=== PATIENT | female | born 1945 | race Caucasian/White ===

== ENCOUNTER 2020-02-03 14:37 | Emergency (ER) | payer MEDICARE, SELFPAY ==
[2020-02-03 14:48] VITALS: BP 159/92; PULSE 73; RESP 18; TEMP 36.9; O2SAT 99
--- NOTE | 2020-02-03 14:48 | ED.WOUNDLAC ---
HPI - Wound/Laceration General Chief Complaint: Wound/Laceration Stated Complaint: Laceration Time Seen by Provider: 02/03/20 14:48 Source: patient and RN notes reviewed Mode of arrival: ambulatory Limitations: no limitations History of Present Illness HPI narrative: 74 year old female who presents to [facility] with complaints of skin tear to her left anterior forearm which occurred last night. Patient states that she hit her arm on the door frame and caused skin tear to anterior left forearm which measures 3cmX 2.5cm with some of tissue pulled back and folded underneath each other. Patient states minimal discomfort to area with palpation has applied Telfa and tape to cover wound. Patient states that it has been over 10 years since she had tetanus. Onset (ago): day(s) (1) Extremity Location: Left: forearm (anterior) Place: home Patient tetanus UTD: No Context: accidental Treatments prior to arrival: bandage Related Data Home Medications Medication Instructions Recorded Confirmed losartan 02/03/20 simvastatin 20 mg PO DAILY 02/03/20 02/03/20 Allergies Allergy/AdvReac Type Severity Reaction Status Date / Time No Known Allergies Allergy Unknown Unverified 02/03/20 14:56 Review of Systems Review of Systems: Narrative: CONSTITUTIONAL: Denies fever, chills, or sweats. EYES: Denies visual changes, redness, or discharge. ENT: Denies rhinorrhea, congestion, sore throat, or otalgia. CARDIOVASCULAR: Denies chest pain, palpitations, or edema. RESPIRATORY: Denies cough or dyspnea. GASTROINTESTINAL: Denies abdominal pain, nausea, vomiting, or diarrhea. GENITOURINARY: Denies dysuria or hematuria. SKIN: Denies rash or itching.skin tear to anterior left forearm with small amount of bleeding noted.skin tear tissue bruised. MUSCULOSKELETAL: Denies back pain, joint pain, or myalgia. NEUROLOGIC: Denies headache, numbness, or weakness. PSYCHIATRIC: Denies anxiety or depression. All systems reviewed & are unremarkable except as noted in HPI and below PMFSH Past Medical History Medical History (Updated 02/03/20 @ 15:39 by Uzma Abarca NP) Acute asthmatic bronchitis Breast cancer Cataract (lens) fragments in eye following cataract surgery, bilateral Detached retina, left Diverticulitis Hyperlipidemia Hypertension Pneumonia Surgical History Surgical History (Updated 02/03/20 @ 14:54 by Uzma Abarca NP) History of lumpectomy of left breast History of tubal ligation Family History Family History (Updated 02/03/20 @ 15:40 by Uzma Abarca NP) Mother Breast cancer Father Acute myocardial infarction Social History Social History (Updated 02/03/20 @ 14:55 by Uzma Abarca NP) Smoking status: Never smoker Alcohol intake: current Living arrangements: with family Gender identity (if verbalized by the patient): Female Comments At time of signature, agree with nursing past medical, surgical, social and family history. There is no relevant family history pertinent to the presenting complaint Exam Narrative: Exam Narrative: GENERAL: Well-appearing, well-nourished, and in no acute distress. HEAD: Normocephalic, atraumatic. EYES: PERRLA and EOMI. ENT: Nares clear, no rhinorrhea or epistaxis. Mucous membranes moist. NECK: Supple.no lymphadenopathy CHEST: Clear to auscultation. No respiratory distress.SAO2 99% on room air HEART: Regular rate and rhythm. No murmur heard. Normal peripheral pulses. ABDOMEN: Soft, nontender, nondistended, normal active bowel sounds. EXTREMITIES: Normal range of motion. No edema. SKIN: Warm, dry, no rash.3cmX2.5cm skin tear to left anterior forearm with tissue pulled back upon self, small amount of bleeding noted. NEURO: No focal deficits. Alert and oriented x3. Course Vital Signs Vital signs: Vital Signs Temperature 36.9 C 02/03/20 14:48 Pulse Rate 73 02/03/20 14:48 Respiratory Rate 18 02/03/20 14:48 Blood Pressure 159/92 H 02/03/20 14:48 Pulse Ox
[2020-02-03] MEDS: TETANUS,DIPHTHERIA,AC PERTUSSIS ADULT (0.5 ML) BOOSTRIX IM (15:19)
== END 2020-02-03 15:40 | disposition home or self-care (01) ==
PROVIDERS: Emergency Provider Registered Nurse; PCP Family Medicine
DX: S51.812A Laceration without foreign body of left forearm, initial encounter (principal); W22.09XA Striking against other stationary object, initial encounter; Z23 Encounter for immunization; E78.5 Hyperlipidemia, unspecified; I10 Essential (primary) hypertension; Z85.3 Personal history of malignant neoplasm of breast
CPT/HCPCS: 90471; 90715; 99212; G0463

== ENCOUNTER → 2020-07-18 11:53 | Outpatient (CLI) | payer MEDICARE, SELFPAY ==
--- NOTE | ~2020-07-18 | MM_ITS ---
EXAMINATION: MM screening [facility] BI w bambi HISTORY: Screening TECHNIQUE: Craniocaudal and mediolateral oblique 3-D tomosynthesis images were obtained and synthetic 2-D images were generated. CAD analysis was submitted and interpreted. COMPARISON: Comparison to multiple prior studies sequentially, with oldest reviewed study dated 02/09. BREAST PARENCHYMAL COMPOSITION: There are scattered areas of fibroglandular density. FINDINGS: There is no evidence of suspicious mass, calcification, or architectural distortion to sugg est malignancy in either breast. There has been no suspicious interval change. IMPRESSION: 1. No mammographic evidence of malignancy. 2. Recommend routine screening mammography in one year. BI-RADS Category 2: Benign finding(s). Reviewed, dictated and finalized at location A. ING MOLDER
== END ==
PROVIDERS: Visit Provider Obstetrics & Gynecology
DX: Z12.31 Encounter for screening mammogram for malignant neoplasm of breast (principal)
CPT/HCPCS: 77063; 77067

== ENCOUNTER 2021-02-05 12:28 | Emergency (ER) | payer MEDICARE, SELFPAY ==
[2021-02-05 12:36] VITALS: BP 124/60; PULSE 50; RESP 18; TEMP 36.7; O2SAT 100
--- NOTE | 2021-02-05 13:28 | ED.WOUNDLAC ---
HPI - Wound/Laceration General Chief Complaint: Wound/Laceration Stated Complaint: Wound on payne Time Seen by Provider: 02/05/21 13:21 Source: patient and RN notes reviewed Mode of arrival: ambulatory Limitations: no limitations History of Present Illness HPI narrative: Patient presents today complaining of an infected laceration to her right lower leg. 2 weeks ago, she struck her leg on a 2 x 4 piece of wood, causing a flap skin tear. She cleaned with alcohol and had been applying Neosporin and Vaseline. She noticed that it had been healing and wanted to come in for evaluation. Related Data Home Medications Medication Instructions Recorded Confirmed mometasone-formoterol HFA 100 2 puff INHALATION Q12H 06/02/20 02/05/21 mcg-5 mcg/actuation aerosol inhaler Allergies Allergy/AdvReac Type Severity Reaction Status Date / Time No Known Allergies Allergy Unknown Verified 02/05/21 12:39 Review of Systems Review of Systems: CONSTITUTIONAL: Denies body aches, fever, chills, or sweats. EYES: Denies visual changes, redness, or discharge. ENT: Denies rhinorrhea, congestion, sore throat, or otalgia. CARDIOVASCULAR: Denies chest pain, palpitations, or edema. RESPIRATORY: Denies cough or dyspnea. GASTROINTESTINAL: Denies abdominal pain, nausea, vomiting, or diarrhea. GENITOURINARY: Denies dysuria or hematuria. SKIN: + Infected wound to right lower leg MUSCULOSKELETAL: Denies back pain, joint pain, or myalgia. NEUROLOGIC: Denies headache, numbness, tingling, or weakness. PSYCH: Denies depression or anxiety. [facility] Past Medical History Medical History Acute asthmatic bronchitis Breast cancer Cataract (lens) fragments in eye following cataract surgery, bilateral Detached retina, left Diverticulitis Hyperlipidemia Hypertension Pneumonia Surgical History Surgical History History of lumpectomy of left breast History of tubal ligation Family History Family History Mother Breast cancer Father Acute myocardial infarction Social History Social History Smoking status: Never smoker Alcohol intake: current Drinks per week: 5 Gender identity (if verbalized by the patient): Female Comments At time of signature, I have reviewed and agree with nursing past medical, surgical, social and family history unless otherwise noted. Please see nursing chart for further information. There is no relevant family history pertinent to the presenting complaint Exam Narrative: GENERAL: Well-appearing, well-nourished, and in no acute distress. HEAD: Normocephalic, atraumatic. EYES: EOMI. No redness or drainage. Conjunctivae normal. ENT: Mucous membranes pink and moist. NECK: Normal AROM. CHEST: No respiratory distress. EXTREMITIES: Normal range of motion. No edema. SKIN: Warm, dry, no rash. Capillary refill normal. Normal skin turgor. 6 x 3.5 cm area of erythema to the right lower leg anteriorly. 3 x 1 cm flap laceration to the center. There is honey crusting coming from a partially scabbed laceration. Mildly tender to palpation. No active drainage NEURO: No focal deficits. Alert and oriented x3. Gait steady. PSYCH: Normal affect. No signs of depression or anxiety. Course Vital Signs Vital signs: Vital Signs Temperature 98.1 F 02/05/21 12:36 Pulse Rate 50 L 02/05/21 12:36 Respiratory Rate 18 02/05/21 12:36 Blood Pressure 124/60 02/05/21 12:36 Pulse Oximetry 100 02/05/21 12:36 Temperature 98.1 F 02/05/21 12:36 Pulse Rate 50 L 02/05/21 12:36 Respiratory Rate 18 02/05/21 12:36 Blood Pressure 124/60 02/05/21 12:36 Pulse Oximetry 100 02/05/21 12:36 Reviewed. Pt has been instructed to follow up with her PCP regarding her elevated blood pressu
== END 2021-02-05 13:36 | disposition home or self-care (01) ==
PROVIDERS: Emergency Provider Nurse Practitioner; PCP Internal Medicine
DX: S81.811A Laceration without foreign body, right lower leg, initial encounter (principal); L08.9 Local infection of the skin and subcutaneous tissue, unspecified; E78.5 Hyperlipidemia, unspecified; I10 Essential (primary) hypertension; W22.8XXA Striking against or struck by other objects, initial encounter
CPT/HCPCS: 99213; G0463

== ENCOUNTER 2021-05-25 13:12 | Emergency (ER) | payer MEDICARE, SELFPAY ==
--- NOTE | ~2021-05-25 | CT_ITS ---
EXAMINATION: CT facial & cervical spine wo DATE: 05/25/2021 13:50 INDICATION: Head injury. Facial swelling. TECHNIQUE: Computed tomography (CT) of the maxillofacial region and cervical spine was performed with out intravenous contrast. Automated exposure control and iterative reconstruction technique were empl oyed. The dose-length product was 193.41 mGy-cm. COMPARISON: None FINDINGS: MAXILLOFACIAL CT: There is left frontal scalp soft tissue swelling and left periorbital swelling. There are likely mcmillan ges of ocular lens replacement surgeries. There is mild mucosal thickening in the paranasal sinuses. There is rightward deviation of the nasal septum. No fracture. The mastoid air cells are normal. CERVICAL SPINE CT: There is scarring at the lung apices. There is 9 degrees levocurvature of cervical spine. There is 2 mm anterolisthesis of C3 on C4 and 2 mm retrolisthesis of C5 on C6. Vertebral body heights are normal . There is severely decreased disc height from C4-C5 through C6-C7. The following disc levels are spe cifically discussed: C2-C3: There is no uncovertebral joint osteoarthritis. There is severe right facet joint osteoarthrit is. There is ankylosis of left facet joint with moderate hypertrophy. There is mild left neural thuy inal stenosis. There is no central canal stenosis. C3-C4: There is mild bilateral uncovertebral joint osteoarthritis. There is severe bilateral facet lyn int osteoarthritis. There is mild bilateral neural foraminal stenosis. There is no central canal sten osis. C4-C5: There is severe bilateral uncovertebral joint osteoarthritis. There is severe bilateral facet joint osteoarthritis. There is mild bilateral neural foraminal stenosis. There is mild central canal stenosis. C5-C6: There is severe bilateral uncovertebral joint osteoarthritis. There is moderate bilateral face t joint osteoarthritis. There is moderate right and mild left neural foraminal stenosis. There is mil d central canal stenosis. C6-C7: There is severe bilateral uncovertebral joint osteoarthritis. There is severe right and mild l eft facet joint osteoarthritis. There is moderate right and mild left neural foraminal stenosis. Ther e is mild central canal stenosis. C7-T1: There is no uncovertebral joint osteoarthritis. There is severe bilateral facet joint osteoart hritis. There is moderate right and mild left neural foraminal stenosis. There is no central canal st enosis. IMPRESSION: 1. No fracture. 2. Severe cervical spondylosis. Reviewed, dictated and finalized at location A. DRATOR TENDER
--- NOTE | ~2021-05-25 | CT_ITS ---
EXAMINATION: CT brain wo con DATE: 05/25/2021 13:50 INDICATION: Facial swelling TECHNIQUE: Computed tomography (CT) of the head was performed without intravenous contrast. The mA wa s adjusted according to patient size. Iterative reconstruction technique was employed. Exam dose: 60 5.33 mGy-cm total exam DLP. COMPARISON: None FINDINGS: There is prominent soft tissue swelling in the region of the nasion and particularly in the left periorbital and extracranial frontal areas. No intracranial coup or contrecoup injury is eviden t. No skull fracture is detected. No orbital abnormality is noted. The globes appear intact. No intracranial mass lesion or hemorrhage or cerebrovascular accident is detected. No midline shift o r mass effect effect. Bilateral carotid siphon internal carotid artery calcifications are noted. There is nonspecific dimin ished attenuation cerebral white matter, likely due to chronic small vessel ischemic changes. There are central and cortical cerebral volume loss and cerebellar volume loss. No subdural or epidural hematoma is detected. There is a small degenerative cyst or polyp in the upper posteromedial left maxillary sinus. The incl uded paranasal sinuses and mastoid air cells are otherwise normally developed and aerated. IMPRESSION: Prominent soft tissue swelling over the extracranial left frontal area and nasion; no un derlying skull fracture or acute intracranial abnormality Reviewed, dictated and finalized at Location A. Reviewed, dictated and finalized at location A. ERCIAL COUNSEL IMPRESSION: Prominent soft tissue swelling over the extracranial left frontal area and nasion; no underlying skull fracture or acute intracranial abnormality
[2021-05-25 13:20] VITALS: BP 161/83; O2SAT 100
[2021-05-25 13:27] VITALS: BP 163/118; PULSE 102; RESP 18; TEMP 37.2; O2SAT 100
[2021-05-25 13:30] VITALS: BP 163/118; PULSE 81; RESP 18; O2SAT 100
--- NOTE | 2021-05-25 13:39 | ED.FALL ---
HPI - Fall General Chief Complaint: Fall Stated Complaint: Fall, Head injury Time Seen by Provider: 05/25/21 13:28 Source: patient and RN notes reviewed Mode of arrival: ambulatory Limitations: no limitations History of Present Illness HPI Narrative: This is a 75 year old female who presents for evaluation of a head injury. She was carrying a box and she tripped on a rug. She fell forward, and she hit her left fore head on ground. She denies LOC, nausea, vomiting or dizziness. 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 She denies taking any blood thinners. She denies neck pain, arm pain, hip pain, numbness or tingling. She denies blurred vision. Related Data Home Medications Medication Instructions Recorded Confirmed mometasone-formoterol HFA 100 2 puff INHALATION Q12H 06/02/20 02/05/21 mcg-5 mcg/actuation aerosol inhaler Allergies Allergy/AdvReac Type Severity Reaction Status Date / Time No Known Allergies Allergy Unknown Verified 02/05/21 12:39 Review of Systems Review of Systems: All systems reviewed & are unremarkable except as noted in HPI and below PMFSH Past Medical History Medical History Acute asthmatic bronchitis Breast cancer Cataract (lens) fragments in eye following cataract surgery, bilateral Detached retina, left Diverticulitis Hyperlipidemia Hypertension Pneumonia Surgical History Surgical History History of lumpectomy of left breast History of tubal ligation Family History Family History Mother Breast cancer Father Acute myocardial infarction Social History Social History Smoking status: Never smoker Alcohol intake: current Drinks per week: 5 Gender identity (if verbalized by the patient): Female Exam Const: General: no acute distress and alert Orientation/consciousness: patient oriented x3 HENMT: Head: normocephalic, hematoma (fore forehead hematura, left periorbital ecchymosis) and other Ears: hearing grossly normal bilaterally, external ears normal and TM's normal bilaterally Face and sinus: sinuses nontender Mouth: Yes Normal oral and palatal mucosa present, Yes lip normal, Yes oropharynx normal and Yes moist mucous membranes Throat: posterior oropharynx normal, tonsils normal and uvula midline Eyes: Pupils: Equal, round and reactive pupils present EOM: EOMs intact bilaterally Neck: Neck: normal visual inspection Chest: Chest palpation & inspection: normal inspection of the chest Resp: Effort & Inspection: normal respiratory effort and no retractions Auscultation: clear to auscultation bilaterally Cardio: Rate: regular rate Rhythm: regular rhythm Heart sounds: no murmurs GI: GI Palp: Yes Soft to palpation, No Tenderness to palpation present (GI) and No Guarding due to palpation present (GI) Auscultation: normal bowel sounds Neuro: General: patient oriented x3, moves all extremities and CN's II-XI intact bilaterally Extrem: Other: abrasion to left knee but no swelling or deformity Psych: Mental Status: mental status grossly normal Affect: normal affect Course Reevaluation(s) Reevaluation #1: Patient has no complaints. I reviewed CT with patient and family. She was given discharge instructions and plan. Date: 05/25/21 Time: 15:10 Vital Signs Vital signs: Vital Signs Blood Pressure 161/83 H 05/25/21 13:20 Pulse Oximetry 100 05/25/21 13:20 Temperature 99 F 05/25/21 13:27 Pulse Rate 72 05/25/21 15:20 Respiratory Rate 18 05/25/21 15:20 Blood Pressure 165/98 H 05/25/21 15:20 Pulse Oximetry 100 05/25/21 15:20 MDM - Fall Imaging Data Radiologist's impression: ITS Impressions Head CT 05/25/21 13:50 IMPRESSION: Prominent soft tissue swelling over the extr
[2021-05-25 15:20] VITALS: BP 165/98; PULSE 72; RESP 18; O2SAT 100
== END 2021-05-25 15:21 | disposition home or self-care (01) ==
PROVIDERS: Emergency Provider General Practice; PCP Internal Medicine
DX: S00.83XA Contusion of other part of head, initial encounter (principal); S80.212A Abrasion, left knee, initial encounter; J45.909 Unspecified asthma, uncomplicated; E78.5 Hyperlipidemia, unspecified; I10 Essential (primary) hypertension; H33.22 Serous retinal detachment, left eye; Z85.3 Personal history of malignant neoplasm of breast; Z87.01 Personal history of pneumonia (recurrent); Z98.42 Cataract extraction status, left eye; Z98.41 Cataract extraction status, right eye; M47.812 Spondylosis without myelopathy or radiculopathy, cervical region; W18.09XA Striking against other object with subsequent fall, initial encounter
CPT/HCPCS: 70450; 70486; 72125; 99284

== ENCOUNTER → 2021-09-05 09:27 | Outpatient (CLI) | payer MEDICARE, SELFPAY ==
--- NOTE | ~2021-09-05 | XR_ITS ---
EXAMINATION: HAND-ASHLY ARTHRITIS 3+VIEWS DATE: 09/05/2021 09:49 INDICATION: Unspecified osteoarthritis with diffuse tenderness and swelling at the bilateral hands. TECHNIQUE: Posteroanterior, lateral, and oblique views of the left and of the right hands as well as a ballcatchers view of both hands were obtained. COMPARISON: None. FINDINGS: Diffuse osteopenia. Bone alignment is normal. No fracture. Likely symmetric pattern of polyarticular osteoarthritis characterized by mild nonuniform joint space narrowing and/or small marginal osteophyt es. There is of moderate severity at the right second-fourth and left third metacarpophalangeal joint s and right third distal interphalangeal joint. Mild osteoarthritis at the majority the remaining phill nts at the bilateral hands and wrists. Chondrocalcinosis at the bilateral wrist joints from early elodia ng the triangular fibrocartilage complex. There are few scattered degenerative subchondral cysts with thin sclerotic margins. There is soft tissue swelling and primarily the left second and right second and third digits and at the right fifth proximal interphalangeal joint. IMPRESSION: 1. Relatively symmetric mild to moderate polyarticular osteoarthritis at the bilateral hands and wris ts. Chondrocalcinosis at the wrist joints as well as the predominant subcutaneous space narrowing at the metacarpophalangeal joints can be seen in the setting of calcium pyrophosphate deposition (CPPD) disease. Reviewed, dictated and finalized at location A. IMPRESSION: 1. Relatively symmetric mild to moderate polyarticular osteoarthritis at the bi lateral hands and wrists. Chondrocalcinosis at the wrist joints as well as the predominant subcutaneous space narrowing at the metacarpophalangeal joints can be seen in the setting of calcium pyrophosphate deposition (CPPD) disease.
== END ==
PROVIDERS: PCP Internal Medicine; Visit Provider Internal Medicine
DX: M19.042 Primary osteoarthritis, left hand (principal); M19.041 Primary osteoarthritis, right hand; M19.032 Primary osteoarthritis, left wrist; M19.031 Primary osteoarthritis, right wrist; M11.232 Other chondrocalcinosis, left wrist; M11.231 Other chondrocalcinosis, right wrist
CPT/HCPCS: 73130

== ENCOUNTER → 2021-10-06 10:19 | Outpatient (CLI) | payer MEDICARE, SELFPAY ==
--- NOTE | ~2021-10-06 | MM_ITS ---
EXAMINATION: MM screening [facility] BI w bambi HISTORY: Screening mammogram, history of left breast cancer TECHNIQUE: Craniocaudal and mediolateral oblique 3-D tomosynthesis images were obtained and synthetic 2-D images were generated. CAD analysis was submitted and interpreted. COMPARISON: 07/18/2020, 05/21/2019, 04/22/2018 BREAST PARENCHYMAL COMPOSITION: There are scattered areas of fibroglandular density. FINDINGS: There are stable lumpectomy changes in the left breast. There is no suspicious mass, calcif ication, or architectural distortion to suggest malignancy in either breast. There has been no suspic ious interval change. IMPRESSION: 1. No mammographic evidence of malignancy. 2. Recommend routine screening mammography in one year. BI-RADS Category 2: Benign finding(s). Reviewed, dictated and finalized at location A.
--- NOTE | ~2021-10-06 | DEXA_ITS ---
Bone Density Report Name: GUMARO CRUZ Age: 76 Sex: Female Ethnicity: White Date of : 1945 Indication: postmenopausal; screening for osteoporosis; height loss; prior fracture; asthma or emphysema; Referring Provider: CASSIE BLACKWELL Study: Bone densitometry was performed. Exam Date: October 06, 2021 Accession number: [id number] Bone Density: Region BMD T-score Z-score Classification AP Spine (L3, L4) 0.819 -2.6 0.1 Osteoporosis Femoral Neck (Left) 0.574 -2.5 -0.3 Osteoporosis Total Hip (Left) 0.743 -1.6 0.3 Osteopenia Femoral Neck (Right) 0.544 -2.7 -0.6 Osteoporosis Total Hip (Right) 0.704 -1.9 0.0 Osteopenia Total Hip Mean 0.724 -1.8 0.2 Osteopenia World Health Organization criteria for BMD impression classify patients as: Normal (T-score at or above -1.0), Osteopenia (T-score between -1.0 and -2.5), or Osteoporosis (T-score at or below -2.5). 10-year Fracture Risk: FRAX not reported because: Some T-score for Spine Total or Hip Total or Femoral Neck at or below -2.5 Clinical Information Provided by Patient: Has had a low trauma fracture Has used the following medications: Calcium, MULT VIT Has the following medical conditions: Asthma or Emphysema, BREAST CA Patient maximum height was 60 Menopause Age: 41 No regular weight bearing exercise Onset of menses at age 14 Number of children 2 Impression: The patient has established osteoporosis, based on the Right Femoral Neck T-score and the existence of a prior fracture. The patient has risk factors, including: previous fracture. Discussion: HIGH RISK OF FRACTURE. BONE DENSITY IS UNDESIRABLY LOW AT ONE OR MORE SKELETAL SITES, CONSISTENT WITH POSTMENOPAUSAL OSTEOPOROSIS. This patient's lowest T-score, in a patient who has previously fractured, meets the World Health Organization's (WHO) criteria for severe osteoporosis. In untreated patients, the risk of osteoporotic fracture increases approximately two-fold for each 1.0 SD decrease in T-score. Low bone density is not the only risk factor for fracture; also consider factors such as patient's age, frailty or poor health, risk of falling, risk of injury, previous osteoporotic fracture, family history of osteoporosis, cigarette smoking, low body weight, etc. Not everyone with low bone mineral density has osteoporosis; osteomalacia and other metabolic bone disorders should also be considered. Patients who have osteoporosis should be evaluated for specific diseases and conditions (secondary causes) that may cause or contribute to bone loss. The [place] [employer]ocrinologists (AACE) and National Osteoporosis Foundation (NOF) recommend pharmacologic intervention for all postmenopausal women whose T-score is in this range. The patient should follow a healthful lifestyle (good nutrition with adequate
== END ==
PROVIDERS: PCP Internal Medicine; Visit Provider Internal Medicine
DX: Z12.31 Encounter for screening mammogram for malignant neoplasm of breast (principal); Z78.0 Asymptomatic menopausal state; M85.89 Other specified disorders of bone density and structure, multiple sites; M81.0 Age-related osteoporosis without current pathological fracture
CPT/HCPCS: 77063; 77067; 77080

== ENCOUNTER 2021-10-09 18:00 | Emergency (ER) | payer MEDICARE, SELFPAY ==
--- NOTE | ~2021-10-09 | CT_ITS ---
EXAMINATION: CT brain wo con DATE: 10/09/2021 18:49 INDICATION: fall, head injury . TECHNIQUE: Computed tomography (CT) of the head was performed without intravenous contrast. The mA wa s adjusted according to patient size. Iterative reconstruction technique was employed. The dose-lengt h product was 605.33 mGy-cm. COMPARISON: 05/25/2021. FINDINGS: No acute intracranial hemorrhage or extra-axial fluid collection. No hydrocephalus, mass, or herniation. No acute ischemic infarct. Unremarkable dural venous sinus attenuation. No acute osseous abnormality. Small retention cyst/polyp in the left medullary sinus. Minimal mucosal thickening in the inferior ri ght maxillary sinus and the middle ethmoid air cells, otherwise the aerated spaces are clear. Mild atrophy and chronic white matter change. Atherosclerotic intracranial calcifications. IMPRESSION: No acute intracranial process. Reviewed, dictated and finalized at location K.
--- NOTE | ~2021-10-09 | XR_ITS ---
EXAM: XR wrist LT min 3V DATE: 10/09/2021 18:30 HISTORY: fall, pain . COMPARISON: None available. FINDINGS: Decreased mineralization. No fracture or dislocation. No lytic or blastic lesion. Mild sca ttered degenerative change. No erosion or periosteal change. Soft tissues within normal limits. IMPRESSION: No acute osseous finding in the left wrist. Reviewed, dictated and finalized at location K.
[2021-10-09 18:02] VITALS: BP 177/110; PULSE 73; RESP 16; TEMP 36.6; O2SAT 100
--- NOTE | 2021-10-09 18:22 | ED.FALL ---
HPI - Fall General Chief Complaint: Fall Stated Complaint: fall Time Seen by Provider: 10/09/21 18:12 History of Present Illness HPI Narrative: Patient is a 76-year-old female here for evaluation of left wrist pain after a fall today. Patient states she was taking the garbage cans out this morning, not wearing her glasses, and she tripped over an object on the road, landing and falling on her left side. She did hit the left side of her head, and also caught herself on her left wrist. She was able to walk after the incident and did not believe that she lost consciousness. Currently complaining of left wrist tightness . Patient presents with her daughter and , who also expressed concern over intermittent memory issues since the incident. They state that patient appears more confused than usual. Patient denies any headaches, visual changes, nausea, vomiting, blood thinner use. She took a Tylenol prior to arrival which alleviated all of her pain. Up to date on tetanus as of 2019. Related Data Home Medications Medication Instructions Recorded Confirmed mometasone-formoterol HFA 100 2 puff INHALATION Q12H 06/02/20 09/05/21 mcg-5 mcg/actuation aerosol inhaler ascorbate calcium (vitamin C) 500 500 mg PO DAILY 07/20/21 09/05/21 mg tablet flaxseed oil 1,000 mg capsule 1,000 mg PO DAILY 07/20/21 09/05/21 multivitamin 1 tablet PO DAILY 07/20/21 09/05/21 mecobalamin (vitamin B12) 1,000 1,000 mcg PO DAILY 09/05/21 09/05/21 mcg chewable tablet Allergies Allergy/AdvReac Type Severity Reaction Status Date / Time No Known Allergies Allergy Unknown Verified 10/09/21 18:06 Review of Systems Review of Systems: Gen.: Denies fevers or chills Eyes: Denies eye pain or visual change ENT: Denies congestion Respiratory: Denies shortness of breath or cough CV: Denies chest pain or palpitations GI: Denies abdominal pain nausea, emesis or diarrhea : denies burning, urgency, frequency or hematuria Musculoskeletal: Reports left wrist pain. Denies back pain or muscle pain Neuro: Denies numbness, tingling, weakness or focal weakness Skin: Denies rash Except as documented, all other systems reviewed and negative All systems reviewed & are unremarkable except as noted in HPI and below PMFSH Past Medical History Medical History Acute asthmatic bronchitis Breast cancer Cataract (lens) fragments in eye following cataract surgery, bilateral Detached retina, left Diverticulitis Hyperlipidemia Hypertension Pneumonia Surgical History Surgical History History of lumpectomy of left breast History of tubal ligation Family History Family History Mother Breast cancer Father Acute myocardial infarction Social History Social History Alcohol intake: current Drinks per week: 5 Alcohol use details: social Substance use: never Substance use type: does not use Gender identity (if verbalized by the patient): Female Exam Narrative: APPEARANCE: Well appearing, no pain in distress, well-nourished. Head: normocephalic and atraumatic. EYES: PERRLA/EOMI, conjunctivae clear NOSE: No nasal drainage EARS: External ear normal in appearance THROAT: Oropharynx is clear. Mucous membranes are moist. NECK: Supple. No adenopathy, no masses. RESPIRATORY: Airway patent, respirations nonlabored. Clear to auscultation bilaterally, no rales, rhonchi, wheezing. CARDIOVASCULAR: Regular rate and rhythm without murmurs, rubs, or gallops. ABDOMINAL: Normoactive bowel sounds. Soft, nontender, nondistended. No rebound tenderness or guarding. MUSCULOSKELETAL: Full range of motion in left wrist and fingers without pain. No tenderness to carpals, phalanges, or anatomical snuffbox. Extremities are warm and well-perfu
--- NOTE | 2021-10-09 19:00 | PC.NURSE ---
assumed care of pt. at this time. Report from ARMANI Johnson
[2021-10-09 19:10] VITALS: BP 148/106; PULSE 74; RESP 14; O2SAT 97
== END 2021-10-09 19:35 | disposition home or self-care (01) ==
PROVIDERS: Emergency Provider Emergency Medicine; PCP Internal Medicine
DX: S09.90XA Unspecified injury of head, initial encounter (principal); S69.92XA Unspecified injury of left wrist, hand and finger(s), initial encounter; E78.5 Hyperlipidemia, unspecified; I10 Essential (primary) hypertension; Z87.01 Personal history of pneumonia (recurrent); Z85.3 Personal history of malignant neoplasm of breast; Z98.42 Cataract extraction status, left eye; Z98.41 Cataract extraction status, right eye; W18.09XA Striking against other object with subsequent fall, initial encounter
CPT/HCPCS: 70450; 73110; 99284

== ENCOUNTER 2022-03-07 13:08 | Outpatient (CLI) | payer MEDICARE, SELFPAY ==
--- NOTE | ~2022-03-07 | MR_ITS ---
EXAMINATION: MR brain/brain stem wo con DATE: 03/07/2022 14:09 INDICATION: Weakness. Tremors. Frequent falls. TECHNIQUE: Magnetic resonance imaging (MRI) of the brain and brainstem was performed without intraven ous contrast. COMPARISON: Head CT 10/09/2021 FINDINGS: There are scattered areas of nonspecific increased T2-weighted signal intensity in the cere bral white matter and ayla. There is no intracranial hemorrhage, acute infarction, or abnormal intrac ranial mass lesion. The ventricles are normal in size. There is mild mucosal thickening in the ethmoi d sinuses. The mastoid air cells are normal. There are likely changes of ocular lens replacement surg eries. IMPRESSION: 1. Mild nonspecific cerebral white matter disease and pontine disease, which likely represents chroni c small vessel ischemic disease. Reviewed, dictated and finalized at location B. IMPRESSION: 1. Mild nonspecific cerebral white matter disease and pontine disease, which sherrell sellers represents chronic small vessel ischemic disease.
== END 2022-03-07 13:09 | disposition home or self-care (01) ==
PROVIDERS: PCP Nurse Practitioner Family; Visit Provider Nurse Practitioner Family
DX: R53.1 Weakness (principal); R29.6 Repeated falls; R25.1 Tremor, unspecified; K11.7 Disturbances of salivary secretion; S09.90XD Unspecified injury of head, subsequent encounter; R90.82 White matter disease, unspecified; G93.89 Other specified disorders of brain
CPT/HCPCS: 70551

== ENCOUNTER → 2022-12-11 12:29 | Outpatient (CLI) | payer MEDICARE, SELFPAY ==
--- NOTE | ~2022-12-11 | MM_ITS ---
EXAMINATION: MM screening raz BI w bambi HISTORY: Screening mammogram TECHNIQUE: Craniocaudal and mediolateral oblique 3-D tomosynthesis images were obtained and synthetic 2-D images were generated. CAD analysis was submitted and interpreted. COMPARISON: 10/06/2021, 07/18/2020, 05/21/2019 bilateral screening mammogram examinations BREAST PARENCHYMAL COMPOSITION: The breasts are heterogeneously dense, which may obscure small masses . FINDINGS: There is asymmetry and architectural distortion on the left, stable, consistent with prior partial mastectomy. There is no evidence of suspicious mass, calcification, or new architectural dist ortion to suggest malignancy in either breast. There has been no suspicious interval change. IMPRESSION: 1. Status post left partial mastectomy for breast cancer; no mammographic evidence of malignancy 2. Recommend routine screening mammography in one year. BI-RADS Category 2: Benign finding(s). Reviewed, dictated and finalized at location L. IMPRESSION: 1. Status post left partial mastectomy for breast cancer; no mammographic evide nce of malignancy 2. Recommend routine screening mammography in one year. BI-RADS Category 2: Benign finding(s).
== END ==
PROVIDERS: PCP Nurse Practitioner Family; Visit Provider Nurse Practitioner Family
DX: Z12.31 Encounter for screening mammogram for malignant neoplasm of breast (principal)
CPT/HCPCS: 77063; 77067

== ENCOUNTER 2024-01-23 10:18 | Outpatient (CLI) | payer MEDICARE, SELFPAY ==
--- NOTE | ~2024-01-23 | MM_ITS ---
EXAMINATION: MM screening raz BI w bambi HISTORY: Screening TECHNIQUE: Craniocaudal and mediolateral oblique 3-D tomosynthesis images were obtained and synthetic 2-D images were generated. CAD analysis was submitted and interpreted. COMPARISON: Comparison to multiple prior studies sequentially, with oldest reviewed study dated 03/21. BREAST PARENCHYMAL COMPOSITION: Dense: The breasts are heterogeneously dense, which may obscure small masses FINDINGS: Stable architectural distortion in the subareolar location of the left breast, consistent w ith previous lumpectomy for breast cancer. There is no evidence of suspicious mass, calcification, or architectural distortion to suggest malignancy in either breast. There has been no suspicious interv al change. IMPRESSION: 1. No mammographic evidence of malignancy. 2. Recommend routine screening mammography in one year. BI-RADS Category 2: Benign finding(s). Reviewed, dictated and finalized at location B.
== END 2024-01-23 10:19 | disposition home or self-care (01) ==
PROVIDERS: PCP Nurse Practitioner Family; Visit Provider Nurse Practitioner Family
DX: Z12.31 Encounter for screening mammogram for malignant neoplasm of breast (principal)
CPT/HCPCS: 77063; 77067

== ENCOUNTER 2024-12-08 14:32 | Emergency (ER) | payer MEDICARE, SELFPAY ==
[2024-12-08 14:42] VITALS: BP 104/68; PULSE 73; RESP 14; TEMP 36.9; O2SAT 100
--- NOTE | 2024-12-08 14:42 | ED_ITS ---
HPI - General Adult General Chief complaint: Skin/Abscess/Foreign Body Stated complaint: Poison Suzi/wound on R ankle Time Seen by Provider: 12/08/24 14:42 Source: patient Mode of arrival: ambulatory Limitations: no limitations History of Present Illness HPI narrative: 79 y/o female presented for c/o poison suzi rash to right calf, and a skin tear to the right lower leg. Pt endorses the poison suzi has been itching for about one week. No improvement with calamine lotion. No other treatment. States yesterday she tripped and struck the right lower leg causing a skin tear. Pt states she 'put the skin back' and applied a dressing to the site. Denies any other injury. Related Data Home Medications ?Medication ?Instructions ?Recorded ?Confirmed ?Last Taken ?Type mometasone-formoterol HFA 100 2 puff inhalation Q12H 06/02/20 10/10/21 05/25/21 History mcg-5 mcg/actuation aerosol inhaler (Dulera) ascorbate calcium (vitamin C) 500 500 mg PO DAILY 07/20/21 10/10/21 Unknown History mg tablet flaxseed oil 1,000 mg capsule 1,000 mg PO DAILY 07/20/21 10/10/21 Unknown History multivitamin (Daily Multi-Vitamin 1 tablet PO DAILY 07/20/21 10/10/21 Unknown History tablet) mecobalamin (vitamin B12) 1,000 1,000 mcg PO DAILY 09/05/21 10/10/21 Unknown History mcg chewable tablet Allergies Allergy/AdvReac Type Severity Reaction Status Date / Time No Known Allergies Allergy Unknown Verified 12/08/24 14:59 Review of Systems Review of Systems: CONSTITUTIONAL: Denies body aches, fever, chills, or sweats. EYES: Denies visual changes, redness, or discharge. ENT: Denies rhinorrhea, congestion CARDIOVASCULAR: Denies chest pain, palpitations, or edema. RESPIRATORY: Denies cough or dyspnea. GASTROINTESTINAL: Denies abdominal pain, nausea, vomiting, or diarrhea. SKIN: reports rash and skin tear right leg MUSCULOSKELETAL: Denies back pain, joint pain, or myalgia. NEUROLOGIC: Denies headache, numbness, tingling, or weakness. [facility] Past Medical History Medical History Acute asthmatic bronchitis Breast cancer Cataract (lens) fragments in eye following cataract surgery, bilateral Detached retina, left Diverticulitis Hyperlipidemia Hypertension Pneumonia Surgical History Surgical History History of lumpectomy of left breast History of tubal ligation Family History Family History Mother Breast cancer Father Acute myocardial infarction Social History Social History Smoking status: Never smoker Alcohol intake: current Drinks per week: 5 Alcohol use details: social Substance use: never Substance use type: does not use Living arrangements: with family Gender identity (if verbalized by the patient): Female Comments At time of signature, I have reviewed and agree with nursing past medical, surgical, social and family history unless otherwise noted. Please see nursing chart for further information. There is no relevant family history pertinent to the presenting complaint Exam Narrative: GENERAL: Well-appearing HEAD: Normocephalic, atraumatic. EYES: conjunctivae clear, and EOMI. ENT: Mucous membranes moist. Oropharynx without edema, erythema or lesions. NECK: Supple. No lymphadenopathy CHEST: Even, unlabored SKIN: Warm, dry. right lower anterior leg with skin tear2.5cm, nearly approximated. Vesicular lesions on erythematous base noted to right calf, few scattered to anterior lower leg. Nontender, no drainage. NEURO: Alert and oriented x3. Course Course Emergency Course: Patient is aware of diagnosis, understands and agrees to treatment plan. Anticipatory guidance given. Patient agrees to follow-up as directed and is aware of reasons to seek care at the emergency department. Portions of this record may have been created with voice recognition software Level of Care: Express Care Visit Vital Signs Vital signs: Vital Signs Temperature 98.4 F 12/08/24 14:42 Pulse Rate 73 12/08/24 14:42 Respiratory Rate 14 12/08/24 14:42 Blood Pressure 104/68 12/08/24 14:42 Pulse Oximetry 100 12/08/24 14:42 Oxygen Delivery Room Air 12/08/24 14:42 Temperature 98.4 F 12/08/24 14:42 Pulse Rate 73 12/08/24 14:42 Respiratory Rate 14 12/08/24 14:42 Blood Pressure 104/68 12/08/24 14:42 Pulse Oximetry 100 12/08/24 14:42 Oxygen Delivery Room Air 12/08/24 14:42 Reviewed Medical Decision Making MDM Narrative Medical decision making narrative: Discussed physical exam findings; right leg with skin tear and contact dermatitis. Reviewed RX for contact dermatitis. Shared decision making pt is agreeable for steri strips to the skin tear. Declines any attempt to approximate the wound edges at this time. Steri strips applied. RITCHIE per pt request. Advised supportive measures and signs/symptoms to go to the ER. Pt is appropriate for outpt treatment and f/u. Differential Diagnosis Differential Diagnosis: Viral exanthema, contact dermatitis, allergic dermatitis, eczema, urticaria, insect bites, impetigo, tinea, folliculitis, skin tear, abrasion, abscess Vital Signs Vital Signs: Vital Signs Temperature 98.4 F 12/08/24 14:42 Pulse Rate 73 12/08/24 14:42 Respiratory Rate 14 12/08/24 14:42 Blood Pressure 104/68 12/08/24 14:42 Pulse Oximetry 100 12/08/24 14:42 Oxygen Delivery Room Air 12/08/24 14:42 Temperature 98.4 F 12/08/24 14:42 Pulse Rate 73 12/08/24 14:42 Respiratory Rate 14 12/08/24 14:42 Blood Pressure 104/68 12/08/24 14:42 Pulse Oximetry 100 12/08/24 14:42 Oxygen Delivery Room Air 12/08/24 14:42 Discharge Plan Discharge Clinical Impression: Noninfected skin tear of right leg, Contact dermatitis Patient Disposition: Home Condition: Stable Instructions: Antibiotic Form, Poison Suzi (ED), Skin Tear (ED) Additional Instructions: rash: Take medication as directed Take over the counter Zyrtec or Claritin to reduce itching Use skin cream such as IvyDry, calamine or Benadryl cream to reduce itchiness Avoid scratching when possible to prevent worsening of the condition and disruption of the skin that could lead to bacterial infection To relieve itching, place a cool washcloth or some ice over the area that itches, rather than scratching Cleanse with gentle soap and water daily skin tear: Steri-Strips will roll off on their own within 14 days Do not soak your wound. Avoid frequent or prolonged contact with water, including heavy perspiration. This may loosen the adhesive before the wound is healed. Ok to leave it open to the air unless at risk for contamination Watch for worsening symptoms including pain, redness, swelling, streaking, pus/drainage, fever. Go to the ER with any of these symptoms or concerns. Follow up with primary care provider in 1 week as needed. Patient Language: Spanish Prescriptions: New famotidine [Pepcid] 40 mg tablet 40 mg PO DAILY Qty: 10 0RF prednisone 20 mg tablet 20 mg PO DAILY Qty: 5 0RF No Action flaxseed oil 1,000 mg capsule 1,000 mg PO DAILY Rx Instructions: administer with a meal multivitamin [Daily Multi-Vitamin] Tablet 1 tablet PO DAILY ascorbate calcium (vitamin C) 500 mg tablet 500 mg PO DAILY mecobalamin (vitamin B12) 1,000 mcg tablet,chewable 1,000 mcg PO DAILY Dulera 100-5 mcg/actuation HFA aerosol inhaler 2 puff inhalation Q12H simvastatin 20 mg tablet 20 mg PO DAILY Qty: 90 1RF losartan 100 mg tablet 100 mg PO DAILY Qty: 90 1RF alendronate [Fosamax] 70 mg tablet 70 mg PO WEEKLY 90 Days Qty: 13 1RF Follow-up/Referrals: KALEB,ALDEN NGUYEN [Primary Care Provider] - Time of Disposition: 15:00
== END 2024-12-08 15:03 | disposition home or self-care (01) ==
PROVIDERS: Emergency Provider Nurse Practitioner Family; PCP Nurse Practitioner Family
DX: S81.811A Laceration without foreign body, right lower leg, initial encounter (principal); X58.XXXA Exposure to other specified factors, initial encounter; L25.9 Unspecified contact dermatitis, unspecified cause; I10 Essential (primary) hypertension; E78.5 Hyperlipidemia, unspecified; Z85.3 Personal history of malignant neoplasm of breast; Z90.12 Acquired absence of left breast and nipple; Z98.42 Cataract extraction status, left eye; Z98.41 Cataract extraction status, right eye
CPT/HCPCS: 99213; G0463

== ENCOUNTER 2025-03-29 09:12 | Emergency (ER) | payer MEDICARE, SELFPAY ==
--- NOTE | ~2025-03-29 | XR_ITS ---
XR nasal bones min 3V Indication: fell 2 days ago, bruised and swollen Comparison: None Technique: 3 view. Findings: No acute fracture or malalignment. No significant degenerative changes. Soft tissues are unremarkable. Impression: No acute fracture or malalignment. Reviewed, dictated and finalized at location P. ER [employer]OURCES MANAGER Impression: No acute fracture or malalignment.
--- NOTE | ~2025-03-29 | XR_ITS ---
EXAMINATION: XR hand RT min 3V, 03/29/2025 9:30 ELECT[employer]ICAL CAD DES[employer]ER HISTORY: pain 5th and 5th metacarpal after fall COMPARISON: No comparisons available. Findings: No acute fracture or malalignment. Moderate degenerative changes Soft tissues unremarkable. Impression: No acute fracture or malalignment. Reviewed, dictated and finalized at location P. TRICAL CAD DESIGNER Impression: No acute fracture or malalignment.
[2025-03-29 09:23] VITALS: BP 133/75; PULSE 64; RESP 16; TEMP 36.5; O2SAT 100
--- NOTE | 2025-03-29 09:23 | ED.FALL ---
HPI - Fall General Chief Complaint: Fall Stated Complaint: fall Time Seen by Provider: 03/29/25 09:23 Source: patient Mode of arrival: ambulatory Limitations: no limitations History of Present Illness HPI Narrative: 79 yo F presents with bruising to face and pain and swelling to R hand. Pt fell 3 days ago in parking lot. tripped over parking curb. Was able to get up on her own. Denies LOC. No headache or vision changes. Hit forehead and states glasses caused a lot of bruising to face. Swelling to R hand progressively worse over weekend. ROM intact but states feels stiff. All systems reviewed and negative except as noted above. Related Data Home Medications ?Medication ?Instructions ?Recorded ?Confirmed ?Last Taken ?Type mometasone-formoterol HFA 100 2 puff inhalation Q12H 06/02/20 10/10/21 05/25/21 History mcg-5 mcg/actuation aerosol inhaler (Dulera) ascorbate calcium (vitamin C) 500 500 mg PO DAILY 07/20/21 10/10/21 Unknown History mg tablet flaxseed oil 1,000 mg capsule 1,000 mg PO DAILY 07/20/21 10/10/21 Unknown History multivitamin (Daily Multi-Vitamin 1 tablet PO DAILY 07/20/21 10/10/21 Unknown History tablet) mecobalamin (vitamin B12) 1,000 1,000 mcg PO DAILY 09/05/21 10/10/21 Unknown History mcg chewable tablet Allergies Allergy/AdvReac Type Severity Reaction Status Date / Time No Known Allergies Allergy Unknown Verified 03/29/25 09:43 [facility] Past Medical History Medical History Acute asthmatic bronchitis Breast cancer Cataract (lens) fragments in eye following cataract surgery, bilateral Detached retina, left Diverticulitis Hyperlipidemia Hypertension Pneumonia Surgical History Surgical History History of lumpectomy of left breast History of tubal ligation Family History Family History Mother Breast cancer Father Acute myocardial infarction Social History Social History Alcohol intake: current Drinks per week: 5 Alcohol use details: social Substance use: never Substance use type: does not use Living arrangements: with family Gender identity (if verbalized by the patient): Female Comments At time of signature, agree with nursing past medical, surgical, social and family history. There is no relevant family history pertinent to the presenting complaint. Exam Narrative: GENERAL: This is a well-nourished, well-developed patient, in no apparent distress. HEAD: normocephalic, atraumatic. bruising under both eyes (racoon eyes) EYES: PERRL. Sclera clear/white. Vision is grossly intact. extraoccular motions intact EARS: External ears normal, auditory canals clear and without drainage, TMs normal without perforation. Hearing grossly intact. NOSE: nose is bruising, mild swelling, tender on palpation to bridge of noise. no obvious deformity NECK: Neck supple, non-tender without lymphadenopathy, masses or thyromegaly. CARDIOVASCULAR: Regular rate and rhythm without murmurs, gallops, or rubs. RESPIRATORY: Clear to auscultation. Breath sounds equal bilaterally. No wheezes, rales, or rhonchi. SKIN: warm, Dry, intact with no suspicious lesions or rash, good texture and turgor. NEURO: awake, alert, and oriented to person, place and time. There were no obvious focal neurologic abnormalities. EXTREMITIES: tender to 4th and 5th distal metacarpal, swellin to entire R hand, mild bruising. normal ROM, distal NV intact. Course Course Level of Care: Express Care Visit Vital Signs Vital signs: Vital Signs Temperature 36.5 C 03/29/25 09:23 Pulse Rate 64 03/29/25 09:23 Respiratory Rate 16 03/29/25 09:23 Blood Pressure 133/75 03/29/25 09:23 Pulse Oximetry 100 03/29/25 09:23 Oxygen Delivery Room Air 03/29/25 09:23 Temperature 36.5 C 03/29/25 09:23 Pulse Rate 64 03/29/25 09:23 Respiratory Rate 16 03/29/25 09:23 Blood Pressure 133/75 03/29/25 09:23 Pulse Oximetry 100 03/29/25 09:23 Oxygen Delivery Room Air 03/29/25 09:23 reviewed MDM - Fall MDM Narrative Medical decision making narrative: xray of R hand and nose negative for fracture. and kalpesh wrap was offered but pt declined. she is A&Ox 3. ambulatory with steady gait. No LOC, no vision changes or headache following fall. she will follow up with her PCP if R hand pain not improving. Discharge Plan Discharge Clinical Impression: Contusion of nose, Fall on same level Contusion of hand, right Qualifiers: Encounter type: initial encounter Qualified Code(s): S60.221A - Contusion of right hand, initial encounter Patient Disposition: Home Condition: Stable Instructions: Contusion in Adults (ED) Additional Instructions: The x-ray of your nose and right hand were negative for fracture. Take Tylenol every 6-8 hours as needed for pain. Elevate when at rest. Avoid activities with right hand that increase pain. Follow-up with your primary care physician if swelling and bruising is not improving. Patient Language: Slovak Prescriptions: No Action famotidine [Pepcid] 40 mg tablet 40 mg PO DAILY Qty: 10 0RF prednisone 20 mg tablet 20 mg PO DAILY Qty: 5 0RF flaxseed oil 1,000 mg capsule 1,000 mg PO DAILY Rx Instructions: administer with a meal multivitamin [Daily Multi-Vitamin] Tablet 1 tablet PO DAILY ascorbate calcium (vitamin C) 500 mg tablet 500 mg PO DAILY mecobalamin (vitamin B12) 1,000 mcg tablet,chewable 1,000 mcg PO DAILY Dulera 100-5 mcg/actuation HFA aerosol inhaler 2 puff inhalation Q12H simvastatin 20 mg tablet 20 mg PO DAILY Qty: 90 1RF losartan 100 mg tablet 100 mg PO DAILY Qty: 90 1RF alendronate [Fosamax] 70 mg tablet 70 mg PO WEEKLY 90 Days Qty: 13 1RF Follow-up/Referrals: KALEB,ALDEN NGUYEN [Primary Care Provider] Time of Disposition: 09:55
== END 2025-03-29 09:56 | disposition home or self-care (01) ==
PROVIDERS: Emergency Provider Nurse Practitioner Family; PCP Nurse Practitioner Family
DX: S00.33XA Contusion of nose, initial encounter (principal); S60.221A Contusion of right hand, initial encounter; W18.09XA Striking against other object with subsequent fall, initial encounter; I10 Essential (primary) hypertension; E78.5 Hyperlipidemia, unspecified; Z85.3 Personal history of malignant neoplasm of breast
CPT/HCPCS: 70160; 73130; 99214; G0463

== ENCOUNTER 2025-04-22 10:29 | Outpatient (CLI) | payer MEDICARE, SELFPAY ==
--- NOTE | ~2025-04-22 | MM_ITS ---
EXAMINATION: MM screening raz BI w bambi HISTORY: Screening. Left lumpectomy/partial mastectomy. TECHNIQUE: Craniocaudal and mediolateral oblique 3-D tomosynthesis images were obtained and synthetic 2-D images were generated. CAD analysis was submitted and interpreted. COMPARISON: 2023, 2022, and 2021 BREAST PARENCHYMAL COMPOSITION: Dense: The breasts are heterogeneously dense FINDINGS: No suspicious masses are seen. There are no suspicious calcifications. Postop changes are again seen on the left. No unexplained architectural distortion is seen. There are no skin or nipple abnormalities identified. There is no adenopathy seen on the images submitted. IMPRESSION: No mammographic evidence to suggest malignancy is seen. The patient may return to screening mammography as per ACR guidelines. BI-RADS 2 - Benign. Reviewed, dictated and finalized at location C. ATOR
== END 2025-04-22 10:30 | disposition home or self-care (01) ==
PROVIDERS: PCP Nurse Practitioner Family; Visit Provider Nurse Practitioner Family
DX: Z12.31 Encounter for screening mammogram for malignant neoplasm of breast (principal)
CPT/HCPCS: 77063; 77067